=== PATIENT | female | born 1960 | race Caucasian/White ===

== ENCOUNTER → 2016-10-14 | Outpatient (CLI) | payer OTHER ==
[~2016-10-14] MED LIST: ADVAIR 2501 DISK W/D PO; ALBUTEROL17 GM INH; FLONASE16 GM; HCTZ PO; IBUPROFEN PO; KLONOPIN PO; LASIX PO; METHADONE PO; PERCOCET7.5 PO; PRILOSEC PO; PROZAC PO; SUBOXONE PO; SYNTHROID PO; TOPAMAX PO; [UNRECOGNIZED DRUG - OTHER]
--- NOTE | ~2016-10-14 | US17 ---
[facility] A Service of [facility] & [facility] RADIOLOGY TEXT RESULTS PATIENT: ETHAN TOMLIN LOCATION: [facility] : 60 UNIT #: [id number] AGE: [address]: Ori Gaspar MD SEX: F ORDER DR: [id number] [facility] [address] [place], [place] [address] [id number] O MR#: [id number] Acc #: [id number] NAME: ETHAN TOMLIN : 1960 SEX: F STUDY DATE/TIME: 10/14/2016 16:46 UNIT: [facility] ROOM: STUDY DESCRIPTION: US Breast Bilateral Attending Physician: Ori Gaspar M.D. Ordering Physician: Ori Gaspar M.D. Primary Care Physician: Ori Gaspar M.D. MEDICAL IMAGING REPORT This report is preliminary unless electronic signature is present EXAM Targeted bilateral breast ultrasound 10/14/2016. INDICATIONS Patient complains of soreness in both breasts. She denies a palpable abnormality. FINDINGS Result text under bilateral diagnostic mammogram order. Please see this order for result text. Dictated by... Santosh Toscano M.D. THIS IS AN ELECTRONICALLY VERIFIED REPORT Santosh Toscano M.D. at 10/15/2016 2:19 PM MARIBEL/jo TD: 10/15/2016 13:25 JOB #: [id number] MEDICAL IMAGING REPORT Page 1 of 1 COPY
--- NOTE | ~2016-10-14 | MY26 ---
[facility] A Service of [facility] & [facility] RADIOLOGY TEXT RESULTS PATIENT: ETHAN TOMLIN LOCATION: [facility] : 60 UNIT #: [id number] AGE: [address]: Ori Gaspar MD SEX: F ORDER DR: [id number] [facility] [address] [place], [place] [address] [id number] O MR#: [id number] Acc #: [id number] NAME: ETHAN TOMLIN : 1960 SEX: F STUDY DATE/TIME: 10/14/2016 15:51 UNIT: [facility] ROOM: STUDY DESCRIPTION: [facility] DIAGNOSTIC W/ CAD BILAT Attending Physician: Ori Gaspar M.D. Ordering Physician: Ori Gaspar M.D. Primary Care Physician: Ori Gaspar M.D. MEDICAL IMAGING REPORT This report is preliminary unless electronic signature is present EXAM Bilateral digital diagnostic mammogram with CAD and bilateral targeted breast ultrasound 10/14/2016. INDICATIONS 56-year-old female complaining of a burning sensation and swelling in both breasts since July of last year. Feeling worse. Family history of breast cancer (degree relative not indicated). History of breast augmentation in nearly 30 years ago. No personal history of breast cancer. TECHNIQUE CC, MLO, implant displaced and spot compression views of both breasts were obtained and reviewed with an FDA-approved CAD device. Following the mammographic portion of the study, targeted ultrasound of both breasts was also performed. COMPARISON Mammograms 05/23/2011, 07/13/2010 FINDINGS Mammographic findings: Bilateral subglandular saline implants are present. They appear symmetric and intact. Calcified oil cyst noted. Benign calcifications are present. Redemonstration of mild fibroglandular predominance in the lower central aspect of both breasts right greater than left. In the right breast, there is a faint asymmetry in the posterior upper outer quadrant adjacent to the implant. This measures about 7 mm. It was further evaluated with spot compression images and becomes less conspicuous with spot compression. It appears to correspond to a nodular density in the same area of the patient's prior mammogram in 2011 and mammographically appears stable or less conspicuous. It was also further evaluated with targeted ultrasound (dictated/described. further in the following section) and ultrasound was negative. [facility] A Service of [facility] / [facility] RADIOLOGY TEXT RESULTS PATIENT: ETHAN TOMLIN LOCATION: [facility] : 60 UNIT #: [id number] AGE: [address]: Ori Gaspar MD SEX: F ORDER DR: On the left, a new 7 mm nodular asymmetry in the posterior left breast, in the posterior nipple line was noted intimately associated with the patients left breast implant. It becomes more conspicuous with implant displaced views but is superimposed over the implant on non-implant displaced views. It was further evaluated with ultrasound as well. Ultrasound findings: The patient was initially scanned independently by the technologist and then rescanned in my presence. Right breast: The patient complained of pain throughout the right breast. Imaging of the right breast with ultrasound was performed in a clockwise fashion to include the entire right breast. Imaging of the right breast with ultrasound is negative. Attention to the upper outer quadrant in the region of the mammographic area of nodularity was also performed and was negative. Imaging findings are concordant with mammography. Left breast: The patient's pain symptoms primarily localized to the outer hemisphere left breast from 2 o'clock through 5 o'clock. In the 3 o'clock position left breast, there was a benign calcified oil cyst. Imaging in the area of patient pain symptoms with ultrasound was otherwise negative. Imaging of the subareolar left breast in the posterior nipple line was performed to evaluate the nodule measuring about 7 mm on the patient's mammogram. Intimately associated with the breast implant on ultrasound is a nonspecific solid-appearing nodule measuring about 7 mm. It is inseparable from the implant on ultrasound. There is no internal color flow. This does not however represent a cyst. The appearance is nonspecific and may reflect an area of capsular scarring or fibrotic change. This most likely corresponds to the mammographic finding and is new. Proximity to the implant and imaging features could reflect benign scarring or fibrotic change. Due to its intimate association with the implant, any attempted biopsy will likely result in implant disruption. Options for 6-month followup or image-guided tissue sampling of the nodule were discussed with the patient along with the very high likelihood of implant disruption in the event of tissue sampling. The patient has requested an opportunity to discuss the findings and options with her primary care physician. At this point, we will recommend 6-month followup imaging of the left breast with mammography and ultrasound for reassessment. The patient was counseled that if she would like to proceed with tissue sampling despite the high risk of implant disruption, that can be scheduled at her convenience. Findings and recommendations in the case were discussed in detail with the patient here in the department. She voiced understanding and agreement. IMPRESSION 1. The appearance of the right breast is unchanged mammographically and with ultrasound. No suspicious findings in the right breast. Return to annual screening on the right recommended. [facility] A Service of [facility] / [facility] RADIOLOGY TEXT RESULTS PATIENT: ETHAN TOMLIN LOCATION: [facility] : 60 UNIT #: [id number] AGE: [address]: Ori Gaspar MD SEX: F ORDER DR: 2. On the left, there is a 7 mm asymmetry intimately associated with the left breast implant in the posterior nipple line. This is new compared to the patient's prior mammograms performed in 2011 and 2010. On ultrasound imaging, features are entirely nonspecific. This may represent an area of scarring or fibrotic change associated with the implant capsule but is new mammographically. At this point, 6-month followup imaging is recommended to reassess stability given that any tissue sampling of this nodule will almost certainly result in implant disruption. The patient has requested an opportunity to consider image guided tissue sampling and if the patient elects for tissue sampling instead of 6-month followup, that will be scheduled at her earliest convenience. All of these findings and recommendations have been discussed in detail with the patient here in the department. The patient was counseled as well that if she elects for 6-month followup and the nodule becomes bigger or larger on followup imaging it will require tissue sampling regardless of the impact upon the implant. She has voiced understanding and agreement. Patients over the age of 40 are entered into a reminder system with target due date for the next mammogram. BIRADS 3: Probably benign finding , short interval followup suggested. STAT * RESULT Dictated by... Santosh Toscano M.D. THIS IS AN ELECTRONICALLY VERIFIED REPORT Santosh Toscano M.D. at 10/15/2016 2:19 PM MARIBEL/jo TD: 10/15/2016 08:15 JOB #: [id number] MEDICAL IMAGING REPORT Page 1 of 1 COPY
== END | disposition home or self-care (01) ==
LOC: CMAM 15:00
DX: N63 Unspecified lump in breast (principal); Z80.3 Family history of malignant neoplasm of breast; Z98.82 Breast implant status
CPT/HCPCS: 76641; G0204

== ENCOUNTER → 2016-10-14 | Outpatient (CLI) | payer OTHER ==
--- NOTE | ~2016-10-14 | US5 ---
[facility] A Service of [facility] & [facility] RADIOLOGY TEXT RESULTS PATIENT: ETHAN TOMLIN LOCATION: [facility] : 60 UNIT #: [id number] AGE: [address]: Daryn Argueta MD SEX: F ORDER DR: [id number] [facility] [address] [place], [place] [address] [id number] O MR#: [id number] Acc #: [id number] NAME: ETHAN TOMLIN : 1960 SEX: F STUDY DATE/TIME: 10/14/2016 17:08 UNIT: [facility] ROOM: STUDY DESCRIPTION: US Abdominal Complete Attending Physician: Daryn Argueta III, M.D. Referring Physician: Daryn Argueta III, M.D. Ordering Physician: Daryn Argueta III, M.D. Primary Care Physician: Ori Gaspar M.D. MEDICAL IMAGING REPORT This report is preliminary unless electronic signature is present EXAM Abdominal ultrasound INDICATION Hepatitis C. Cirrhosis. Patient also developed pain starting last night. Patient was diagnosed with hepatitis C in the late 1980s/early . TECHNIQUE Pacheco-scale, color Doppler and spectral Doppler waveform analysis was performed through the abdomen. FINDINGS Visualized portions of the pancreas appear within normal limits. There is coarsening of hepatic echotexture but no focal hepatic lesions are seen. The gallbladder is distended measuring up to 12.4 cm in length but no stones or sludge are identified and there is no gallbladder wall thickening or pericholecystic fluid. Both kidneys are normal in appearance. There are no solid or cystic renal masses. There is no hydronephrosis. I do think the patient has diffuse hepatic steatosis in addition to the coarsening of the hepatic echotexture. The spleen appears unremarkable. Main portal vein is patent with hepatopetal flow. Abdominal aorta measures within normal size limits. IMPRESSION 1. Coarsening of hepatic echotexture as well as diffuse hepatic steatosis without focal hepatic lesion. No intra- or extrahepatic biliary dilatation seen. 2. Distended gallbladder of uncertain clinical significance. Certainly, no stones or sludge are seen within the gallbladder and there is no gallbladder wall thickening or pericholecystic fluid. Dictated by... [facility] A Service of [facility] & [facility] RADIOLOGY TEXT RESULTS PATIENT: ETHAN TOMLIN LOCATION: [facility] : 60 UNIT #: [id number] AGE: [address]: Daryn Argueta MD SEX: F ORDER DR: Nicole Barros M.D. THIS IS AN ELECTRONICALLY VERIFIED REPORT Nicole Barros M.D. at 10/15/2016 4:25 PM AFF/maya TD: 10/15/2016 14:25 JOB #: [id number] MEDICAL IMAGING REPORT Page 1 of 1 COPY
== END | disposition home or self-care (01) ==
LOC: CWCC 10-02 10:00
DX: B18.2 Chronic viral hepatitis C (principal); K76.0 Fatty (change of) liver, not elsewhere classified; K82.8 Other specified diseases of gallbladder
CPT/HCPCS: 76700

== ENCOUNTER 2016-10-26 08:53 | Emergency (ER) | payer OTHER ==
[~2016-10-26] VITALS: Ht 170.2 cm; Wt 74.1 kg
== END 2016-10-26 10:23 | disposition home or self-care (01) ==
LOC: CED 08:53
DX: R53.83 Other fatigue (principal); J44.9 Chronic obstructive pulmonary disease, unspecified; F17.200 Nicotine dependence, unspecified, uncomplicated; Z88.8 Allergy status to other drugs, medicaments and biological substances
CPT/HCPCS: 82947; 99285